=== PATIENT | male | born 1960 | race African-American/Black ===

== ENCOUNTER 2018-06-24 05:14 | Day surgery (SDC) | payer MEDICARE, MEDICAID ==
[~2018-06-24] VITALS: Ht 170.2 cm; Wt 90.4 kg
[~2018-06-24 05:14] MED LIST: ACET-2178 PO; ATEN50TA PO; CALC667C PO; CINA60 PO
[2018-06-24] MEDS ORDERED: SKIN ADHESIVE 0.7 GM EA TOP ONE (05:28)
[2018-06-24] MEDS ORDERED: BUPIVACAINE HCL/PF 0.5% (5MG/ML) 10ML ONE (05:28)
[2018-06-24] MEDS ORDERED: SODIUM CHLORIDE 0.9% 500 ML IV NR (06:00)
[2018-06-24 06:04] LABS: CLARITY URINE CLEAR (CLEAR); COLOR URINE YELLOW (YELLOW); KETONES URINE TRACE (NEGATIVE); LEUKOCYTE ESTERASE URINE 2+ (NEGATIVE); NITRITE URINE NEGATIVE (NEGATIVE); OCCULT BLOOD URINE 2+ (NEGATIVE); PROTEIN URINE 2+ (NEGATIVE); SPECIFIC GRAVITY URINE 1.023 (1.005-1.030)
[2018-06-24] MEDS ORDERED: ROCURONIUM BROMIDE 10MG/ML VIAL 5ML IV ONE (06:41)
[2018-06-24] MEDS ORDERED: PROPOFOL 200MG/20ML VIAL IV ONE (06:41)
[2018-06-24] MEDS ORDERED: FENTANYL CITRATE/PF 50MCG/ML 5ML VIAL ONE (06:41)
[2018-06-24] MEDS ORDERED: MIDAZOLAM HCL 2 MG/2 ML VIAL ONE (06:42)
[2018-06-24] MEDS ORDERED: BUPIVACAINE HCL 0.5% (5MG/ML) 50ML ONE (07:14)
[2018-06-24] MEDS ORDERED: CEFAZOLIN SODIUM 1000MG/VIAL ONE (07:52)
[2018-06-24] MEDS ORDERED: GLYCOPYRROLATE 0.2 MG/ML 2ML VIAL ONE ×2 (07:56→09:09)
[2018-06-24] MEDS ORDERED: EPHEDRINE SULFATE 50MG/ML VIAL ONE (09:09)
[2018-06-24] MEDS ORDERED: FENTANYL CITRATE/PF 50MCG/ML 2ML VIAL IV PRN (10:00)
[2018-06-24] MEDS ORDERED: MORPHINE SULFATE 4 MG/ML CPJ (NOT FOR IM USE) IV PRN (10:00)
[2018-06-24] MEDS ORDERED: ONDANSETRON HCL 4MG/2ML VIAL IV PRN (10:00)
== END 2018-06-24 12:00 | disposition home or self-care (01) ==
LOC: OR 05:14
PROVIDERS: ATTEND Surgery
DX: K40.90 Unilateral inguinal hernia, without obstruction or gangrene, not specified as recurrent (principal); I13.2 Hypertensive heart and chronic kidney disease with heart failure and with stage 5 chronic kidney disease, or end stage renal disease; N18.6 End stage renal disease; I50.9 Heart failure, unspecified; I42.9 Cardiomyopathy, unspecified; Z99.2 Dependence on renal dialysis; Z79.899 Other long term (current) drug therapy
CPT/HCPCS: 36415; 49650; 71045; 80048; 81003; 87086; C1781; G0168; J0690; J2250; J3010; J3490; J7120; J2704

== ENCOUNTER 2022-12-18 10:13 | Inpatient (IN) | payer MEDICARE, MEDICAID ==
[2022-12-18] VITALS (24 sets, daily range): BP systolic 87–143; BP diastolic 42–78
[~2022-12-18] VITALS: Ht 154.9 cm; Wt 109.3 kg
[~2022-12-18 10:13] MED LIST changes: -ACET-2178 PO; +TOPUD PO
[2022-12-18 11:20] LABS: EOSINOPHILS % 5.5 % (0.0-5.0); HEMOGLOBIN. 11.6 g/dL (14.0-18.0); LYMPHOCYTES % 18.7 % (20.0-50.0); MEAN CORPUSCULAR HEMOGLOBIN 33.9 pg (28.0-32.0); MEAN PLATELET VOLUME 8.3 fl (7.4-10.4); MONOCYTES % 10.9 % (2.0-8.0); NEUTROPHILS % 63.9 % (40.0-76.0); PLATELET 226 x1000/uL (130-400); RED BLOOD CELL COUNT 3.44 mill/uL (4.7-6.1); RED CELL DISTRIBUTION WIDTH 17.4 % (11.6-14.6)
[2022-12-18] MEDS ORDERED: GENTAMICIN SULF 40MG/ML 2ML VIAL ONE (11:22)
[2022-12-18] MEDS ORDERED: LIDOCAINE HCL/EPINEPHRINE 1%-EPI 1:100,000 20 ML VIAL ONE (11:22)
[2022-12-18] MEDS ORDERED: THROMBIN (BOVINE) 5000 UNITS/VIAL TOP ONE (11:22)
[2022-12-18 11:28] LABS: INR 1.1; PROTHROMBIN TIME 11.3 sec (9.6-11.0)
[2022-12-18 11:30] LABS: CHLORIDE 99 mEq/L (98-107)
[2022-12-18] MEDS ORDERED: [UNRECOGNIZED DRUG - OTHER] PO (12:01)
[2022-12-18] MEDS ORDERED: CYCL10TA21 PO (12:01)
[2022-12-18] MEDS ORDERED: DOCU-150 PO (12:01)
[2022-12-18] MEDS ORDERED: SODIUM CHLORIDE 0.9% 500 ML IV ONE (12:15)
[2022-12-18] MEDS ORDERED: NALOXONE HCL 0.4MG/ML VIAL IV PRN (13:30)
[2022-12-18] MEDS ORDERED: NICARDIPINE 100 MG in SODIUM CHLORIDE 0.9% 60 ML IV PRN (13:30)
[2022-12-18] MEDS ORDERED: MORPHINE SULFATE 4 MG/ML CPJ (NOT FOR IM USE) IV PRN (13:30)
[2022-12-18] MEDS ORDERED: CEFAZOLIN SODIUM 1000MG/VIAL IV SCH (14:00)
[2022-12-18] MEDS ORDERED: MIDAZOLAM HCL 2 MG/2 ML VIAL ONE (14:15)
[2022-12-18] MEDS ORDERED: ROCURONIUM BROMIDE 10MG/ML VIAL 5ML IV ONE (15:28)
[2022-12-18] MEDS ORDERED: PHENYLEPHRINE HCL 10 MG/ML 1ML (IV VIAL) IV ONE ×4 (16:00→17:04)
[2022-12-18] MEDS ORDERED: DOPAMINE 800MG PREMIX (DOUBLE) 250 ML IV PRN (17:00)
[2022-12-18] MEDS ORDERED: FENTANYL 2500MCG/250ML PMX 250 ML IV ONE (17:30)
[2022-12-18] MEDS ORDERED: PROPOFOL 10MG/ML 100ML 100 ML IV PRN ×2 (17:30→23:15)
[2022-12-18] MEDS ORDERED: FENTANYL CITRATE 2,500 MCG in SODIUM CHLORIDE 0.9% 200 ML IV PRN (17:45)
[2022-12-18] MEDS: SODIUM CHLORIDE 0.9% 1,000 ML IV SCH (17:53)
[2022-12-18 17:55] LABS: HEPATITIS B SURFACE ANTIGEN NEGATIVE
[2022-12-18 18:13] LABS: BG BASE EXCESS -1.3 mmol/L (-2.0-2.0); BG CARBOXYHEMOGLOBIN 0.3 % (0.5-1.5); BG DEOXYHEMOGLOBIN 0.7 % (0.0-5.0); BG FRACTION INSPIRED OXYGEN 100; BG HCO3 ACT 23.6 mmol/L (22.0-26.0); BG METHEMOGLOBIN 0.2 % (0.0-1.5); BG OXYGEN SATURATION 99.3 % (92.0-98.5); BG OXYHEMOGLOBIN 98.8 % (94.0-97.0); BG PCO2 40.1 mmHg (35.0-45.0); BG PH 7.387 (7.350-7.450); BG PO2 383.3 mmHg (75.0-100.0); BG SAMPLE SITE RIGHT RADIAL; BG TOTAL HEMOGLOBIN 10.2 g/dL (12.0-18.0); BG VENT MODE VENT - AC
[2022-12-18 19:50] LABS: HEMATOCRIT 28.1 % (42.0-52.0)
[2022-12-18] MEDS ORDERED: NOREPINEPHRINE 8 MG in DEXT 5% WATER 242 ML IV PRN (23:15)
[2022-12-18] MEDS ORDERED: ONDANSETRON HCL 4MG/2ML INJ IV PRN (23:15)
[2022-12-19] VITALS (79 sets, daily range): BP systolic 47–168; BP diastolic 21–90
[2022-12-19 04:54] LABS: BASOPHILS % 0.3 % (0.0-2.0); EOSINOPHILS % 0.4 % (0.0-5.0); HEMATOCRIT. 30.5 % (42.0-52.0); LYMPHOCYTES % 7.8 % (20.0-50.0); MEAN CORPUSCULAR HEMOGLOBIN 34.1 pg (28.0-32.0); MEAN CORPUSCULAR VOLUME 103.8 fL (80.0-94.0); NEUTROPHILS % 83.5 % (40.0-76.0); RED BLOOD CELL COUNT 2.93 mill/uL (4.7-6.1); RED CELL DISTRIBUTION WIDTH 17.2 % (11.6-14.6)
[2022-12-19 05:19] LABS: PHOSPHORUS 4.4 mg/dL (2.5-4.9)
[2022-12-19] MEDS: SODIUM CHLORIDE 0.9% 1,000 ML IV SCH ×2 (06:34→10:28)
[2022-12-19] MEDS ORDERED: ACETAMINOPHEN 325MG TABLET PO PRN (10:00)
[2022-12-19] MEDS: HYDROCODONE/ACETAMINOPHEN 5/325MG TABLET PO PRN ×3 (10:26→23:17)
[2022-12-19 13:39] LABS: PLATELET 172 x1000/uL (130-400)
[2022-12-19 13:40] LABS: PLATELET ESTIMATE NORMAL
[2022-12-19 15:03] LABS: T4 FREE 1.01 ng/dL (0.76-1.46)
[2022-12-19] MEDS: CEFAZOLIN 500MG in DEXTROSE 5% WATER 50ML IV SCH (16:08)
[2022-12-20] VITALS (26 sets, daily range): BP systolic 100–158; BP diastolic 54–88
[2022-12-20] MEDS: HYDROCODONE/ACETAMINOPHEN 5/325MG TABLET PO PRN ×2 (03:44→15:44)
[2022-12-20] MEDS: SODIUM CHLORIDE 0.9% 1,000 ML IV SCH (05:04)
[2022-12-20 05:56] LABS: BASOPHILS % 0.5 % (0.0-2.0); EOSINOPHILS % 2.8 % (0.0-5.0); HEMATOCRIT. 28.7 % (42.0-52.0); HEMOGLOBIN. 9.5 g/dL (14.0-18.0); LYMPHOCYTES % 10.9 % (20.0-50.0); MEAN CORPUSCULAR HEMOGLOBIN 34.4 pg (28.0-32.0); MEAN CORPUSCULAR VOLUME 104.2 fL (80.0-94.0); MEAN PLATELET VOLUME 8.9 fl (7.4-10.4); MONOCYTES % 10.7 % (2.0-8.0); NEUTROPHILS % 75.1 % (40.0-76.0); PLATELET 146 x1000/uL (130-400); RED BLOOD CELL COUNT 2.76 mill/uL (4.7-6.1); RED CELL DISTRIBUTION WIDTH 16.8 % (11.6-14.6)
[2022-12-20 06:07] LABS: PHOSPHORUS 6.4 mg/dL (2.5-4.9)
[2022-12-20] MEDS ORDERED: SODIUM POLYSTYRENE SULFONATE 15 G/60 ML BOT PO NR (14:00)
[2022-12-20] MEDS: CEFAZOLIN 500MG in DEXTROSE 5% WATER 50ML IV SCH (16:59)
[2022-12-20] MEDS: CALCIUM ACETATE 667MG CAPSULE PO SCH (17:25)
[2022-12-20] MEDS: FLUTICASONE PROPIONATE 50MCG/SPRAY BOTTLE BOTHNSTRLS SCH (21:33)
[2022-12-21] VITALS (9 sets, daily range): BP systolic 98–135; BP diastolic 49–73
[2022-12-21 07:21] LABS: BASOPHILS % 0.4 % (0.0-2.0); EOSINOPHILS % 3.7 % (0.0-5.0); HEMATOCRIT. 23.1 % (42.0-52.0); HEMOGLOBIN. 7.8 g/dL (14.0-18.0); LYMPHOCYTES % 10.3 % (20.0-50.0); MEAN CORPUSCULAR HEMOGLOBIN 34.4 pg (28.0-32.0); MEAN CORPUSCULAR VOLUME 101.5 fL (80.0-94.0); MEAN PLATELET VOLUME 8.9 fl (7.4-10.4); MONOCYTES % 11.3 % (2.0-8.0); NEUTROPHILS % 74.3 % (40.0-76.0); PLATELET 141 x1000/uL (130-400); RED BLOOD CELL COUNT 2.28 mill/uL (4.7-6.1); RED CELL DISTRIBUTION WIDTH 16.8 % (11.6-14.6)
[2022-12-21 08:15] LABS: PHOSPHORUS 8.1 mg/dL (2.5-4.9)
[2022-12-21] MEDS: CALCIUM ACETATE 667MG CAPSULE PO SCH ×2 (09:22→18:07)
[2022-12-21 10:35] LABS: TOTAL IRON BINDING CAPACITY 154 ug/dL (250-450)
[2022-12-21] MEDS: FLUTICASONE PROPIONATE 50MCG/SPRAY BOTTLE BOTHNSTRLS SCH ×2 (13:51→21:32)
[2022-12-21] MEDS: IRON SUCROSE COMPLEX 100 MG/5 ML ML IV SCH (18:08)
[2022-12-21] MEDS ORDERED: EPOETIN ALFA-EPBX 4,000 UNIT/ML VIAL SUBCUT SCH (21:00)
[2022-12-22] VITALS (7 sets, daily range): BP systolic 99–123; BP diastolic 55–75
[2022-12-22 05:30] LABS: BASOPHILS % 0.6 % (0.0-2.0); HEMATOCRIT. 22.6 % (42.0-52.0); HEMOGLOBIN. 7.7 g/dL (14.0-18.0); LYMPHOCYTES % 9.5 % (20.0-50.0); MEAN CORPUSCULAR VOLUME 99.8 fL (80.0-94.0); MEAN PLATELET VOLUME 8.7 fl (7.4-10.4); MONOCYTES % 11.2 % (2.0-8.0); NEUTROPHILS % 74.7 % (40.0-76.0); PLATELET 170 x1000/uL (130-400); RED BLOOD CELL COUNT 2.26 mill/uL (4.7-6.1); RED CELL DISTRIBUTION WIDTH 16.5 % (11.6-14.6)
[2022-12-22] MEDS: CALCIUM ACETATE 667MG CAPSULE PO SCH ×3 (08:39→17:32)
[2022-12-22] MEDS: FLUTICASONE PROPIONATE 50MCG/SPRAY BOTTLE BOTHNSTRLS SCH (08:42)
[2022-12-22] MEDS: IRON SUCROSE COMPLEX 100 MG/5 ML ML IV SCH (16:12)
[2022-12-22] MEDS ORDERED: MAGNESIUM HYDROXIDE 400MG/5ML 30ML UDC PO NR (17:00)
[2022-12-22] MEDS ORDERED: BISACODYL 10MG SUPP PR NR (17:00)
[2022-12-22] MEDS ORDERED: SENNOSIDES 8.6MG TABLET PO PRN (17:00)
[2022-12-22] MEDS ORDERED: DOCUSATE SODIUM 100MG CAPSULE PO SCH (17:00)
[2022-12-22] MEDS: HYDROCODONE/ACETAMINOPHEN 5/325MG TABLET PO PRN (18:08)
== END 2022-12-22 19:11 | DRG 459 ==
LOC: OR 10:13 → MICUNO 17:12 → 7WST 12-20 11:40
PROVIDERS: ADMIT Internal Medicine; ATTEND Internal Medicine
PROC: 0SG0071 Fusion of Lumbar Vertebral Joint with Autologous Tissue Substitute, Posterior Approach, Posterior Column, Open Approach (ICD-10-PCS; principal; 2022-12-18)
PROC: 5A1D70Z Performance of Urinary Filtration, Intermittent, Less than 6 Hours Per Day (ICD-10-PCS; 2022-12-19)
PROC: 5A1D70Z Performance of Urinary Filtration, Intermittent, Less than 6 Hours Per Day (ICD-10-PCS; 2022-12-21)
DX: M48.061 Spinal stenosis, lumbar region without neurogenic claudication (principal); N18.6 End stage renal disease; Z68.42 Body mass index [BMI] 45.0-49.9, adult; I13.2 Hypertensive heart and chronic kidney disease with heart failure and with stage 5 chronic kidney disease, or end stage renal disease; I42.8 Other cardiomyopathies; G82.20 Paraplegia, unspecified; M47.16 Other spondylosis with myelopathy, lumbar region; I50.30 Unspecified diastolic (congestive) heart failure; Z99.2 Dependence on renal dialysis; Z20.822 Contact with and (suspected) exposure to COVID-19; E66.9 Obesity, unspecified; M47.26 Other spondylosis with radiculopathy, lumbar region; E87.5 Hyperkalemia; G89.29 Other chronic pain; J30.9 Allergic rhinitis, unspecified; D63.1 Anemia in chronic kidney disease; E61.1 Iron deficiency; I27.20 Pulmonary hypertension, unspecified; F17.290 Nicotine dependence, other tobacco product, uncomplicated; Z82.49 Family history of ischemic heart disease and other diseases of the circulatory system; M54.30 Sciatica, unspecified side
CPT/HCPCS: 36415; 36600; 71045; 72100; 76000; 80048; 80053; 82375; 82805; 83540; 83550; 83735; 84100; 84132; 84439; 84443; 84478; 84480; 85014; 85018; 85025; 86705; 86709; 86803; 86850; 86900; 87340; 87426; 90935; 93005; 93306; 94002; 95863; 95925; 95926; 95928; 95929; 97116; 97162; 97166; 97530; 97535; C9803; J0690; J0885; J1265; J1580; J2250; J2270; J2370; J2405; J3490; J7030; J7050; J7060; C1713; C1762